=== PATIENT | male | born 1940 | race American Indian/Alaskan Native ===

== ENCOUNTER 2017-03-21 13:26 | Outpatient (CLI) | payer MEDICARE ==
[2017-03-21 13:52] LABS: Basophils % (Auto) 0.9 % (0.0-1.8); Eosinophils % (Auto) 1.5 % (0.0-4.3); Hematocrit 35.8 % (35.5-45.6); Hemoglobin 11.6 gm/dl (11.8-15.2); Mean Corpuscular HGB Conc 33 % (32-34); Mean Corpuscular Hemoglobin 30 pg (28-32); Mean Corpuscular Volume 91 fl (84-94); Platelet Count 219 K/mm3 (140-440); Red Blood Count 3.94 M/mm3 (3.65-5.03); Red Cell Distribution Width 18.2 % (13.2-15.2); White Blood Count 10.2 K/mm3 (4.5-11.0)
[2017-03-21 14:04] LABS: Albumin 3.8 g/dL (3.9-5); Albumin/Globulin Ratio 1.1 %; Bilirubin,Total 0.7 mg/dL (0.1-1.2); Calcium 9.9 mg/dL (8.4-10.2); Chloride 80.7 mmol/L (98-107); Potassium 3.9 mmol/L (3.6-5.0); Total Protein 7.3 g/dL (6.3-8.2)
== END 2017-03-21 13:27 | disposition home or self-care (01) ==
LOC: LAB 13:26
DX: I13.0 Hypertensive heart and chronic kidney disease with heart failure and stage 1 through stage 4 chronic kidney disease, or unspecified chronic kidney disease (principal); N18.3 Chronic kidney disease, stage 3 (moderate); I50.43 Acute on chronic combined systolic (congestive) and diastolic (congestive) heart failure
CPT/HCPCS: 36415; 80053; 85025